=== PATIENT | female | born 1980 ===

== ENCOUNTER 2017-02-01 10:03 | Emergency (ER) | payer OTHER ==
[2017-02-01 10:04] VITALS: BMI 24.0
[2017-02-01 10:29] VITALS: O2SAT 100
[2017-02-01] MEDS ORDERED: Sodium Chloride 0.9% 1,000 ML IV ONE (12:56)
[2017-02-01 13:12] LABS: BASO % 0.5 % (0.0-2.0); EOS # 0.1 K/uL (0.0-0.7); EOS % 1.1 % (0.0-4.0); HEMATOCRIT 38.7 % (34.0-47.0); LYMPH # 2.6 K/uL (1.0-4.3); LYMPH % 32.8 % (20.0-40.0); MEAN CELL VOLUME 85.2 fL (81.0-99.0); MEAN CORPUSCULAR HGB CONC 32.8 g/dL (33.0-37.0); MONO # 0.5 K/uL (0.0-0.8); MONO % 6.9 % (0.0-10.0); RED CELL DISTRIBUTION WIDTH 13.7 % (11.5-14.5); WHITE BLOOD COUNT 7.8 K/uL (4.8-10.8)
[2017-02-01 13:18] LABS: RBC URINE 8 /hpf (0-3); URINE BILIRUBIN NEGATIVE (NEGATIVE); URINE BLOOD 2+ (NEGATIVE); URINE COLOR Yellow (YELLOW); URINE GLUCOSE (UA) NORMAL (Normal); URINE KETONE NEGATIVE (NEGATIVE); URINE LEUKOCYTE ESTERASE NEG Leu/uL (Negative); URINE PROTEIN NEGATIVE (NEGATIVE); URINE UROBILINOGEN NORMAL mg/dL (0.2-1.0); WBC URINE 1 /hpf (0-5)
[2017-02-01 13:19] LABS: CHLORIDE 101 mmol/L (98-107); POTASSIUM 3.8 mmol/L (3.6-5.2); SODIUM 143 mmol/L (132-148)
[2017-02-01 13:22] LABS: ALB/GLOB RATIO 1.2 (1.0-2.1); ALKALINE PHOSPHATASE 95 U/L (38-126); ALT/SGPT 17 U/L (9-52); AST/SGOT 19 U/L (14-36); BILIRUBIN,TOTAL 0.6 mg/dL (0.2-1.3); BLOOD UREA NITROGEN 10 mg/dL (7-17); CALCIUM 8.2 mg/dl (8.6-10.4); CARBON DIOXIDE 25 mmol/L (22-30); GFR AFRICAN-AMERICAN > 60; GLUCOSE,RANDOM 73 mg/dL (65-105); TOTAL PROTEIN 7.2 g/dL (6.3-8.3)
--- NOTE | 2017-02-01 14:20 | C.PDOC ---
History Of Present Illness Patient is a 36 year old female who presents to the ER with a complain of upper epigastric pain that is getting worse. Patient states she was seen in the ER in the beginning of December for the same reason. Patient was diagnosed with gastritis, given omeprazole, but did not follow up. Patient also complains of left lower back pain that has been present for a month after slipping and falling in the snow. Denies any chest pain, shortness of breath, nausea, vomiting, or any other injuries. Time Seen by Provider: 02/01/17 12:39 Chief Complaint (Nursing): Abdominal Pain History Per: Patient History/Exam Limitations: no limitations Onset/Duration Of Symptoms: Hrs (Upper epigastric pain), Days (Left lower back pain) Current Symptoms Are (Timing): Still Present Severity: Mild Location Of Pain/Discomfort: Epigastric (Upper) Associated Symptoms: denies: Fever, Chills, Nausea, Vomiting Past Medical History Reviewed: Historical Data, Nursing Documentation, Vital Signs Vital Signs: Last Vital Signs Temp 98.1 F 02/01/17 10:26 Pulse 71 02/01/17 10:26 Resp 16 02/01/17 10:26 BP 154/84 H 02/01/17 10:26 Pulse Ox 100 02/01/17 18:28 - Medical History PMH: Gall Bladder Disease (GB stones), Kidney Stones Surgical History: Cholecystectomy - [facility] Procedures INDIVID PSYCHOTHERAP NEC (09/13/13) INJECT/INFUSE NEC (10/14/13) LAPAROSCOPIC CHOLECYSTECTOMY (01/09/15) OTHER GROUP THERAPY (09/13/13) Family History: States: Unknown Family Hx - Social History Hx Tobacco Use: No Hx Alcohol Use: No Hx Substance Use: No - Immunization History Hx Tetanus Toxoid Vaccination: No Hx Influenza Vaccination: No Hx Pneumococcal Vaccination: No Review Of Systems Constitutional: Negative for: Fever, Chills Cardiovascular: Negative for: Chest Pain, Palpitations Respiratory: Negative for: Shortness of Breath Gastrointestinal: Positive for: Abdominal Pain (Upper epigastric pain). Negative for: Nausea, Vomiting Physical Exam - Physical Exam Appears: Well, Non-toxic Skin: Normal Color, Warm, Dry Head: Atraumatic, Normacephalic Eye(s): bilateral: Normal Inspection Oral Mucosa: Moist Chest: Symmetrical Cardiovascular: Rhythm Regular Respiratory: Normal Breath Sounds, No Rales, No Rhonchi, No Wheezing Gastrointestinal/Abdominal: Soft, Tenderness (Epigastric), No Distention, No Guarding, No Rebound, No Other (right upper quadrant pain) Back: No Vertebral Tenderness, Paraspinal Tenderness (Left lumbar) Extremity: Normal ROM, No Tenderness Neurological/Psych: Oriented x3, Normal Speech, Normal Cognition ED Course And Treatment - Laboratory Results Result Diagrams: 02/01/17 13:07 02/01/17 13:07 O2 Sat by Pulse Oximetry: 100 (Room air) Pulse Ox Interpretation: Normal - CT Scan/US CT ABD & Pelvis w/o contrast Other Rad Studies (CT/US): Read By Radiologist, Radiology Report Reviewed CT/US Interpretation: ADDENDUM: Addendum dictation: Please note that the impression of this report was erroneous. There is a 3 mm nonobstructing right lower pole renal calculus. There is no left renal calculus. Please make note of this addendum. [ Addendum Report Added by Ilan Martínez MD at 02/01/2017 18:03:05 ]. PROCEDURE: CT Abdomen and Pelvis without intravenous contrast. HISTORY: left flank pain and hematuria, eval for kidney sto. COMPARISON: None. TECHNIQUE: Without contrast.. Contrast Dose: 0. Radiation dose: Total exam DLP = 1126.27 mGy-cm. FINDINGS: LOWER THORAX: Unremarkable. LIVER : Unremarkable. No gross lesion or ductal dilatation. GALLBLADDER AND BILE DUCTS: Status post cholecystectomy. PANCREAS: Unremarkable. No gross lesion or ductal dilatation. SPLEEN: Unremarkable. ADRENALS: Unremarkable. No mass. KIDNEYS AND URETERS: 3 mm nonobstructing right lower pole renal calculus. No left renal calculus. No renal mass or hydronephrosis. VASCULATURE : Unremarkable. No aortic aneurysm. BOWEL: Unremarkable. No obstruction. No gross mural thickening. APPENDIX: Unremarkable. Normal appendix. PERITONEUM: Unremarkable. No free fluid. No free air. LYMPH NODES: Unremarkable. No enlarged lymph nodes. BLADDER: Unremarkable. REPRODUCTIVE: Normal uterus. BONES: No acute fracture. OTHER FINDINGS: None. IMPRESSION: 3 mm nonobstructing left lower pole renal calculus. No hydronephrosis. No ureteral calculus. Status post cholecystectomy. Otherwise unremarkable. Progress Note: Pepcid, and IV fluids administered. Urine culture, POC urine , and labs ordered. Medical Decision Making Medical Decision Making: pt's abdomen soft, nd, nt, no epigastric pain on palp after pepcid. pt still with left lumbar area pain and has some hematuria; will give toradol and get stone protocol ct abdomen to r/o stones. hydro. 624 pt feeling much better. left lower back pain markedly decreased after toradol. ct scan shows 3 mm stone in right kidney. will d/c with omeprazole and gi f/u/ Disposition Counseled Patient/Family Regarding: Studies Performed, Diagnosis, Need For Followup, Rx Given - Disposition Referrals: [facility] [Outside] Brian Montoya MD [Staff Provider] - Disposition: HOME/ ROUTINE Disposition Time: 18:29 Condition: IMPROVED Additional Instructions: Follow up with Dr Montoya (Gastroenterology doctor) and in medical clinic. Drink ,lots of water. Take Tylenol for back pain. Return to ER for any worsening symptoms. Prescriptions: Omeprazole 40 mg PO DAILY #21 capsule. Instructions: Gastritis (ED), Acute Low Back Pain (ED) Forms: Gen Discharge Inst Ethiopian - Clinical Impression Clinical Impression: Low back pain, Gastritis - Scribe Statement The provider has reviewed the documentation as recorded by the Scribe Sanford Becerra All medical record entries made by the Carolynnibsaulo were at my direction and personally dictated by me. I have reviewed the chart and agree that the record accurately reflects my personal performance of the history, physical exam, medical decision making, and the department course for this patient. I have also personally directed, reviewed, and agree with the discharge instructions and disposition.
--- NOTE | 2017-02-01 17:45 | CT ---
PROCEDURE: CT Abdomen and Pelvis without intravenous contrast HISTORY: left flank pain and hematuria, eval for kidney sto COMPARISON: None. TECHNIQUE: Without contrast.. Contrast Dose: 0 Radiation dose: Total exam DLP = 1126.27 mGy-cm. FINDINGS: LOWER THORAX: Unremarkable LIVER: Unremarkable. No gross lesion or ductal dilatation. GALLBLADDER AND BILE DUCTS: Status post cholecystectomy PANCREAS: Unremarkable. No gross lesion or ductal dilatation. SPLEEN: Unremarkable. ADRENALS: Unremarkable. No mass. KIDNEYS AND URETERS: 3 mm nonobstructing right lower pole renal calculus. No left renal calculus. No renal mass or hydronephrosis. VASCULATURE: Unremarkable. No aortic aneurysm. BOWEL: Unremarkable. No obstruction. No gross mural thickening. APPENDIX: Unremarkable. Normal appendix. PERITONEUM: Unremarkable. No free fluid. No free air. LYMPH NODES: Unremarkable. No enlarged lymph nodes. BLADDER: Unremarkable. REPRODUCTIVE: Normal uterus BONES: No acute fracture. OTHER FINDINGS: None. IMPRESSION: 3 mm nonobstructing left lower pole renal calculus. No hydronephrosis. No ureteral calculus. Status post cholecystectomy. Otherwise unremarkable.
[2017-02-01 18:46] VITALS: BP 143/90; PULSE 68; RESP 18; TEMP 98.2
== END 2017-02-01 18:46 | disposition home or self-care (01) ==
LOC: C.ER 10:03
DX: K29.70 Gastritis, unspecified, without bleeding (principal); M54.5 Low back pain
CPT/HCPCS: 74176; 80053; 81001; 83690; 85025; 87086; 96361; 96374; 96375; 99285; J1885; J7040

== ENCOUNTER 2017-02-08 08:10 | Day surgery (SDC) | payer OTHER ==
[2017-02-08 08:51] VITALS: BMI 34.7
[2017-02-08] MEDS ORDERED: Lactated Ringer's 500 ML IV ONE (10:10)
--- NOTE | 2017-02-08 10:11 | CP.SDSHP ---
Same Day Surgery H & P - History Proposed Procedure: egd Pre-Op Diagnosis: epigastric pain. heartburn - Previous Medical/Surgical History Endocrine/Metabolic: Obesity Previous Surgical History: Lap Cholecystectomy. L breast cyst. [place] - Allergies Allergies: Allergies morphine Allergy (Intermediate, Verified 02/08/17 08:50) RASH tramadol Allergy (Intermediate, Verified 02/08/17 08:50) RASH - Physical Exam Vital Signs: Vital Signs 02/08/17 09:01 Temperature 98.4 F Pulse Rate 67 Respiratory 19 Rate Blood Pressure 138/83 O2 Sat by Pulse 100 Oximetry Mental Status: Alert & Oriented x3 Neuro: WNL Heart: WNL Lungs: WNL GI: WNL - Impression Impression: epigastric pain. heartburn Pt. Evaluated Today:Candidate for Anesthesia & Procedure: Yes - Date & Time Date: 02/08/17 Time: 10:11 Short Stay Discharge - Short Stay Discharge Admitting Diagnosis/Reason for Visit: EPIGASTRIC PAIN / HEARTBURN /EPIGASTRIC ABDOMINAL Disposition: HOME/ ROUTINE
[2017-02-08] MEDS ORDERED: Pantoprazole 40 mg EC Tab PO ONE (10:12)
[2017-02-08] MEDS ORDERED: Lidocaine Hydrochloride 10 ML INJ ONE (10:15)
[2017-02-08] MEDS ORDERED: Propofol 10 mg/ml Inj (20 ML) ONE (10:15)
[2017-02-08] MEDS ORDERED: ePHEDrine 50 mg/ml Inj ONE (10:26)
[2017-02-08 10:48] VITALS: O2SAT 100
[2017-02-08 11:53] VITALS: BP 128/70; PULSE 60; RESP 15; TEMP 60
== END 2017-02-08 11:45 | disposition home or self-care (01) ==
LOC: C.ENDO 08:10
PROVIDERS: ATTEND Internal Medicine Gastroenterology
DX: R10.13 Epigastric pain (principal); K21.0 Gastro-esophageal reflux disease with esophagitis
CPT/HCPCS: 43239; 84703; 88305; 88312; 88342; J2704; J3010; J7120

== ENCOUNTER 2017-04-18 09:23 | Emergency (ER) | payer OTHER ==
[2017-04-18 09:34] VITALS: BMI 30.5
[2017-04-18] MEDS ORDERED: Sodium Chloride 0.9% 1,000 ML IV ONE (09:42)
[2017-04-18] MEDS ORDERED: Sodium Chloride 0.9% 1,000 ML ONE (10:16)
[2017-04-18 10:27] LABS: BASO # 0.1 K/uL (0.0-0.2); BASO % 0.6 % (0.0-2.0); EOS # 0.1 K/uL (0.0-0.7); HEMATOCRIT 36.9 % (34.0-47.0); LYMPH # 2.5 K/uL (1.0-4.3); LYMPH % 28.1 % (20.0-40.0); MEAN CELL VOLUME 84.6 fL (81.0-99.0); MEAN CORPUSCULAR HEMOGLOBIN 27.7 pg (27.0-31.0); MEAN CORPUSCULAR HGB CONC 32.7 g/dL (33.0-37.0); MEAN PLATELET VOLUME 8.4 fL (7.2-11.7); MONO # 0.6 K/uL (0.0-0.8); MONO % 7.2 % (0.0-10.0); RED CELL DISTRIBUTION WIDTH 14.3 % (11.5-14.5); WHITE BLOOD COUNT 8.9 K/uL (4.8-10.8)
[2017-04-18 10:36] LABS: URINE BILIRUBIN NEGATIVE (NEGATIVE); URINE BLOOD 2+ (NEGATIVE); URINE COLOR Straw (YELLOW); URINE GLUCOSE (UA) NORMAL (Normal); URINE KETONE NEGATIVE (NEGATIVE); URINE LEUKOCYTE ESTERASE NEG Leu/uL (Negative); URINE PROTEIN NEGATIVE (NEGATIVE); URINE UROBILINOGEN NORMAL mg/dL (0.2-1.0); WBC URINE < 1 /hpf (0-5)
[2017-04-18 10:48] LABS: CHLORIDE 107 mmol/L (98-107); POTASSIUM 3.7 mmol/L (3.6-5.2); SODIUM 139 mmol/L (132-148)
[2017-04-18 10:50] LABS: BILIRUBIN,TOTAL 0.5 mg/dL (0.2-1.3); GFR AFRICAN-AMERICAN > 60
[2017-04-18 10:51] LABS: ALB/GLOB RATIO 1.2 (1.0-2.1); ALKALINE PHOSPHATASE 105 U/L (38-126); ALT/SGPT 13 U/L (9-52); AST/SGOT 19 U/L (14-36); BLOOD UREA NITROGEN 13 mg/dL (7-17); CALCIUM 8.8 mg/dl (8.6-10.4); CARBON DIOXIDE 22 mmol/L (22-30); GLUCOSE,RANDOM 93 mg/dL (65-105); TOTAL PROTEIN 7.1 g/dL (6.3-8.3)
[2017-04-18 10:54] LABS: RBC URINE 5 /hpf (0-3)
--- NOTE | 2017-04-18 11:18 | C.PDOC ---
History Of Present Illness 36 y/o female presents to the ED with complaints of left flank pain for the past week with associated dysuria and mild nausea. Denies vomiting, fever, chest pain, SOB, vaginal bleeding or discharge or any other complaints. History of kidney stones in the past. Chief Complaint (Nursing): Back Pain History Per: Patient History/Exam Limitations: no limitations Onset/Duration Of Symptoms: Days Current Symptoms Are (Timing): Still Present Severity: Moderate Recent travel outside of the [place]: No Past Medical History Reviewed: Historical Data, Nursing Documentation, Vital Signs Vital Signs: Last Vital Signs Temp 98.2 F 04/18/17 13:55 Pulse 66 04/18/17 13:55 Resp 18 04/18/17 13:55 BP 108/68 04/18/17 13:55 Pulse Ox 100 04/18/17 13:55 - Medical History PMH: Gall Bladder Disease (GB stones), Kidney Stones Surgical History: Cholecystectomy - [facility] Procedures INDIVID PSYCHOTHERAP NEC (09/13/13) INJECT/INFUSE NEC (10/14/13) LAPAROSCOPIC CHOLECYSTECTOMY (01/09/15) OTHER GROUP THERAPY (09/13/13) Family History: States: Unknown Family Hx - Social History Hx Tobacco Use: No Hx Alcohol Use: No Hx Substance Use: No - Immunization History Hx Tetanus Toxoid Vaccination: No Hx Influenza Vaccination: No Hx Pneumococcal Vaccination: No Review Of Systems Except As Marked, All Systems Reviewed And Found Negative. Constitutional: Negative for: Fever, Chills Cardiovascular: Negative for: Chest Pain Respiratory: Negative for: Shortness of Breath Gastrointestinal: Positive for: Nausea. Negative for: Vomiting Genitourinary: Positive for: Dysuria. Negative for: Vaginal Discharge, Vaginal Bleeding Musculoskeletal: Positive for: Back Pain (left flank pain) Physical Exam - Physical Exam Appears: Non-toxic, No Acute Distress Skin: Warm, Dry, No Rash Head: Atraumatic, Normacephalic Chest: Symmetrical Cardiovascular: Rhythm Regular, No Murmur Respiratory: Normal Breath Sounds, No Rales, No Rhonchi, No Wheezing Gastrointestinal/Abdominal: Normal Exam, Soft, No Tenderness Back: CVA Tenderness (left) Extremity: Bilateral: Atraumatic Neurological/Psych: Oriented x3, Normal Speech ED Course And Treatment - Laboratory Results Result Diagrams: 04/18/17 10:15 04/18/17 10:15 ECG: Interpreted By Me, Viewed By Me ECG Rhythm: Sinus Rhythm Rate From EC (BPM) O2 Sat by Pulse Oximetry: 98 (room air) Pulse Ox Interpretation: Normal - CT Scan/US CT abd/pelvis Other Rad Studies (CT/US): Read By Radiologist, Radiology Report Reviewed CT/US Interpretation: PROCEDURE: CT Abdomen and Pelvis without Oral or IV contrast. HISTORY: left flank pain. COMPARISON: CT abdomen and pelvis without oral or IV contrast performed 02/01/17. TECHNIQUE: Contiguous axial images of the abdomen and pelvis. No oral or IV contrast administered. Coronal and Sagittal reformats generated and reviewed. Radiation dose: Total exam DLP = 849.19 mGy-cm. This CT exam was performed using one or more of the following dose reduction techniques: Automated exposure control, adjustment of the mA and/ or kV according to patient size, and/or use of iterative reconstruction technique. FINDINGS: There is limited evaluation of the solid organs without the administration of IV contrast. LOWER THORAX: No visible consolidation, pleural effusion, or pneumothorax. LIVER: Unremarkable unenhanced appearance. GALLBLADDER AND BILE DUCTS: Cholecystectomy. PANCREAS: Unremarkable unenhanced appearance. SPLEEN: 11 mm probable splenule. Unremarkable unenhanced appearance. ADRENALS: Unremarkable unenhanced appearance. KIDNEYS AND URETERS: No hydronephrosis or obstructing renal calculus. Single bilateral nonobstructing calculi measuring less than 3 mm. BLADDER: The urinary bladder appears unremarkable. REPRODUCTIVE: Uterus is present. Bilateral probable ovarian cysts. APPENDIX: The appendix appears within normal limits of caliber. No secondary signs of acute appendicitis. BOWEL: The stomach is nondistended. Lack of oral contrast limits evaluation for bowel pathology. The bowel loops appear within normal limits of caliber without evidence of intestinal obstruction. PERITONEUM: No significant free fluid. No definite free air. LYMPH NODES: Sub cm nonspecific mesenteric lymph nodes. No bulky lymphadenopathy identified. VASCULATURE: No aortic aneurysm. BONES: No acute osseous abnormality is detected. OTHER FINDINGS: Tiny fat containing umbilical hernia. IMPRESSION: No hydronephrosis or obstructing renal calculus. Single bilateral nonobstructing calculi measuring less than 3 mm. Bilateral probable ovarian cysts. Medical Decision Making Medical Decision Making: Plan: * Ct abdomen * EKG * labs * UA * IV fluids * toradol Disposition - Disposition Referrals: [facility] Yakelin Rao, [Non-Staff] - Disposition: HOME/ ROUTINE Disposition Time: 12:30 Condition: IMPROVED Additional Instructions: Thank you for letting us take care of you today. Your provider was Dr. Neff. You were treated for kidney stones. The emergency medical care you received today was directed at your acute symptoms. If you were prescribed any medication, please fill it and take as directed. It may take several days for your symptoms to resolve. Return to the Emergency Department if your symptoms worsen, do not improve, or if you have any other problems. Please contact your doctor or call one of the physicians/clinics you have been referred to that are listed on the Patient Visit Information form that is included in your discharge packet. Bring any paperwork you were given at discharge with you along with any medications you are taking to your follow up visit. Our treatment cannot replace ongoing medical care by a primary care provider (PCP) outside of the emergency department. [facility] you [facility] to be part of your care today. Follow up with your doctor in 2-3 days for re-evaluation. Prescriptions: Benzonatate [Tessalon Perles] 100 mg PO Q8 PRN #15 sgl PRN Reason: Cough Ibuprofen [Motrin] 600 mg PO Q6 PRN #20 tab PRN Reason: Pain, Moderate (4-7) Instructions: Kidney Stones (ED), How to Strain Your Urine (ED) Forms: Gen Discharge Inst Chinese Print Language: LITHUANIAN - Clinical Impression Clinical Impression: Kidney stone - Scribe Statement The provider has reviewed the documentation as recorded by the George Quintana Provider Attestation: All medical record entries made by the George were at my direction and personally dictated by me. I have reviewed the chart and agree that the record accurately reflects my personal performance of the history, physical exam, medical decision making, and the department course for this patient. I have also personally directed, reviewed, and agree with the discharge instructions and disposition.
[2017-04-18 12:10] VITALS: BP 108/68
--- NOTE | 2017-04-18 12:14 | CT ---
PROCEDURE: CT Abdomen and Pelvis without Oral or IV contrast. HISTORY: left flank pain COMPARISON: CT abdomen and pelvis without oral or IV contrast performed 02/01/17 TECHNIQUE: Contiguous axial images of the abdomen and pelvis. No oral or IV contrast administered. Coronal and Sagittal reformats generated and reviewed. Radiation dose: Total exam DLP = 849.19 mGy-cm. This CT exam was performed using one or more of the following dose reduction techniques: Automated exposure control, adjustment of the mA and/or kV according to patient size, and/or use of iterative reconstruction technique. FINDINGS: There is limited evaluation of the solid organs without the administration of IV contrast. LOWER THORAX: No visible consolidation, pleural effusion, or pneumothorax. LIVER: Unremarkable unenhanced appearance. GALLBLADDER AND BILE DUCTS: Cholecystectomy. PANCREAS: Unremarkable unenhanced appearance. SPLEEN: 11 mm probable splenule. Unremarkable unenhanced appearance. ADRENALS: Unremarkable unenhanced appearance. KIDNEYS AND URETERS: No hydronephrosis or obstructing renal calculus. Single bilateral nonobstructing calculi measuring less than 3 mm. BLADDER: The urinary bladder appears unremarkable. REPRODUCTIVE: Uterus is present. Bilateral probable ovarian cysts. APPENDIX: The appendix appears within normal limits of caliber. No secondary signs of acute appendicitis. BOWEL: The stomach is nondistended. Lack of oral contrast limits evaluation for bowel pathology. The bowel loops appear within normal limits of caliber without evidence of intestinal obstruction. PERITONEUM: No significant free fluid. No definite free air. LYMPH NODES: Sub cm nonspecific mesenteric lymph nodes. No bulky lymphadenopathy identified. VASCULATURE: No aortic aneurysm. BONES: No acute osseous abnormality is detected. OTHER FINDINGS: Tiny fat containing umbilical hernia. IMPRESSION: No hydronephrosis or obstructing renal calculus. Single bilateral nonobstructing calculi measuring less than 3 mm. Bilateral probable ovarian cysts.
[2017-04-18 13:56] VITALS: PULSE 66; RESP 18; TEMP 98.2
--- NOTE | 2017-04-19 14:03 | CARD ---
APPROVED REPORT EKG Measurement Heart [id number] <Conclusion> Normal sinus rhythm Normal ECG
[2017-04-21 07:21] VITALS: O2SAT 98
== END 2017-04-18 13:57 | disposition home or self-care (01) ==
LOC: C.ER 09:23
DX: N20.0 Calculus of kidney (principal); Z87.442 Personal history of urinary calculi
CPT/HCPCS: 74176; 80053; 81001; 83690; 85025; 87086; 93005; 96361; 96374; 99285; J1885; J7040

== ENCOUNTER 2017-09-02 17:27 | Emergency (ER) | payer OTHER ==
[2017-09-02 17:27] VITALS: BMI 35.5
[2017-09-02 17:33] VITALS: RESP 16; TEMP 97.4; O2SAT 98
--- NOTE | 2017-09-02 18:33 | C.PDOC ---
History Of Present Illness 37 y/o female c/o bilateral lateral ankle pain since 10 am after tripping down one step in [employer] where she works, twisting both ankles in the process at 10 am. pt denies hitting her head, no other injuries, ambulates with pain, no analgesics tried. Time Seen by Provider: 09/02/17 18:26 Chief Complaint (Nursing): Lower Extremity Problem/Injury History Per: Patient History/Exam Limitations: no limitations Past Medical History Reviewed: Historical Data, Nursing Documentation, Vital Signs Vital Signs: Last Vital Signs Temp 97.4 F L 09/02/17 17:31 Pulse 74 09/02/17 20:31 Resp 16 09/02/17 20:31 BP 132/78 09/02/17 20:31 Pulse Ox 98 09/06/17 20:46 - Medical History PMH: Gall Bladder Disease (GB stones), Kidney Stones Denies: Colonic Polyps, Fractures Surgical History: Cholecystectomy - [facility] Procedures INDIVID PSYCHOTHERAP NEC (09/13/13) INJECT/INFUSE NEC (10/14/13) LAPAROSCOPIC CHOLECYSTECTOMY (01/09/15) OTHER GROUP THERAPY (09/13/13) Family History: States: Unknown Family Hx - Social History Hx Tobacco Use: No Hx Alcohol Use: No Hx Substance Use: No - Immunization History Hx Tetanus Toxoid Vaccination: No Hx Influenza Vaccination: No Hx Pneumococcal Vaccination: No Review Of Systems Musculoskeletal: Positive for: Foot Pain (bilateral ankle pain and swelling) Skin: Negative for: Bruising Neurological: Negative for: Weakness, Numbness Physical Exam - Physical Exam Appears: Non-toxic, No Acute Distress Skin: Normal Color, Warm, Dry Head: Atraumatic, Normacephalic Eye(s): bilateral: Normal Inspection, PERRL, EOMI Nose: Normal Neck: No Midline Cervical Tenderness Cardiovascular: Rhythm Regular, No Murmur Respiratory: Normal Breath Sounds, No Accessory Muscle Use, No Wheezing Gastrointestinal/Abdominal: Soft, No Tenderness Extremity: Tenderness (to the lateral malleolus bilaterally), No Calf Tenderness , Capillary Refill (< 2 sec), Swelling (bilateral lateral malleolar regions), Other (from at knees) Pulses: Left Dorsalis Pedis: Normal, Right Dorsalis Pedis: Normal Neurological/Psych: Oriented x3, Normal Speech, Normal Cognition, Normal Motor, Normal Sensation ED Course And Treatment O2 Sat by Pulse Oximetry: 98 (RA) Pulse Ox Interpretation: Normal Progress Note: Ordered urine and X-Ray of Bilateral Ankles. Patient given Tylenol in the ED. Cold pack applied to ankles. Medical Decision Making Medical Decision Making: no fxs noted on either ankle xray, pt given vonda bandages to use at night and air casts for daytime, able to walk with some discomfort. pt advised to elevate legs at night, cold compresses vonda bandage, tylenol for pain (pt has gastritis and doesn't take motrin) f/u ortho. explained to paitient via tranalator Maray H. Disposition Counseled Patient/Family Regarding: Diagnosis, Need For Followup, Rx Given - Disposition Referrals: [facility] [Outside] [facility] [Outside] Bacilio White III, MD [Staff Provider] - Disposition: HOME/ ROUTINE Disposition Time: 20:23 Condition: STABLE Additional Instructions: Use yesos jacob el da y use vendajes de noche. Mantenga los pies elevados cuando sea posible, aplique compresas fras en los tobillos para disminuir la hinchazn. Tylneol para el dolor Seguimiento en clnica mdica o con ortopedista. Trata de disminuir la posicin y caminar en los prximos vasquez para descansar. RICE_ cherie, hielo, compresin, elevacin. Wear air casts in daytime, and use vonda bandages at night. Keep feet elevated when possible, apply cold compress to ankles to decrease swelling. Tylneol for pain. Follow up in medical clinic or with orthopedist. Try to decrease standing and walkijng in next few days to rest. RICE_ rest, ice, compression, elevation. 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 - Scribe Statement The provider has reviewed the documentation as recorded by the Carolynnibsaulo Bradley All medical record entries made by the Scribe were at my direction and personally dictated by me. I have reviewed the chart and agree that the record accurately reflects my personal performance of the history, physical exam, medical decision making, and the department course for this patient. I have also personally directed, reviewed, and agree with the discharge instructions and disposition.
[2017-09-02 20:32] VITALS: BP 132/78; PULSE 74
--- NOTE | 2017-09-03 07:56 | RAD ---
Bilateral ankles four views History: Injury. Comparison: None available. Findings: Right ankle: Ankle inversion which may be related to patient positioning. Clinical correlation. Lateral malleolar soft tissue swelling. Mild prominence of the lateral aspect of the tibiotalar joint space which may be related to patient positioning. Clinical correlation. No evidence of acute displaced fracture or dislocation. Left ankle: Ankle inversion which may be related to patient positioning. Clinical correlation. Lateral malleolar soft tissue swelling. No evidence for acute displaced fracture or dislocation. Impression: Right ankle: Ankle inversion which may be related to patient positioning. Clinical correlation. Lateral malleolar soft tissue swelling. Mild prominence of the lateral aspect of the tibiotalar joint space which may be related to patient positioning. Clinical correlation. No evidence of acute displaced fracture or dislocation. Left ankle: Ankle inversion which may be related to patient positioning. Clinical correlation. Lateral malleolar soft tissue swelling. No evidence for acute displaced fracture or dislocation. If pain persists, consider MRI.
== END 2017-09-02 20:30 | disposition home or self-care (01) ==
LOC: C.ER 17:27
DX: S93.402A Sprain of unspecified ligament of left ankle, initial encounter (principal); S93.401A Sprain of unspecified ligament of right ankle, initial encounter; W10.9XXA Fall (on) (from) unspecified stairs and steps, initial encounter; Y92.22 Religious institution as the place of occurrence of the external cause; Y99.0 Civilian activity done for income or pay

== ENCOUNTER 2018-01-18 15:53 | Emergency (ER) | payer SELFPAY ==
[2018-01-18 15:53] VITALS: BMI 36.1
[2018-01-18 16:00] VITALS: RESP 18; TEMP 97.9; O2SAT 100
[2018-01-18] MEDS ORDERED: Sodium Chloride 0.9% 1,000 ML IV ONE (16:20)
[2018-01-18] MEDS ORDERED: Sodium Chloride 0.9% 1,000 ML ONE (16:30)
[2018-01-18 16:37] LABS: BASO % 0.5 % (0.0-2.0); EOS # 0.1 K/uL (0.0-0.7); HEMOGLOBIN 11.3 g/dL (11.0-16.0); LYMPH # 2.4 K/uL (1.0-4.3); LYMPH % 28.3 % (20.0-40.0); MEAN CELL VOLUME 80.9 fL (81.0-99.0); MEAN CORPUSCULAR HEMOGLOBIN 26.4 pg (27.0-31.0); MEAN CORPUSCULAR HGB CONC 32.6 g/dL (33.0-37.0); MEAN PLATELET VOLUME 7.5 fL (7.2-11.7); MONO # 0.5 K/uL (0.0-0.8); MONO % 6.2 % (0.0-10.0); NEUT # 5.3 K/uL (1.8-7.0); RBC 4.3 Mil/uL (3.80-5.20); RED CELL DISTRIBUTION WIDTH 14.5 % (11.5-14.5); WHITE BLOOD COUNT 8.3 K/uL (4.8-10.8)
--- NOTE | 2018-01-18 16:40 | C.PDOC ---
History Of Present Illness 37 y/o female presents to ED with complaints of colic left sided abdominal discomfort and foul urine smell for 6 days. Patient thinks she has kidney issues and came to ED for further evaluation. Patient denies fever, chills, nausea, vomiting, diarrhea, hematuria or any other complaints at this time. + mentrual period today. Time Seen by Provider: 01/18/18 16:12 Chief Complaint (Nursing): Back Pain History Per: Patient History/Exam Limitations: no limitations Onset/Duration Of Symptoms: Days Current Symptoms Are (Timing): Still Present Past Medical History Reviewed: Historical Data, Nursing Documentation, Vital Signs Vital Signs: Last Vital Signs Temp 97.9 F 01/18/18 15:56 Pulse 76 01/18/18 15:56 Resp 18 01/18/18 15:56 BP 128/66 01/18/18 15:56 Pulse Ox 100 01/18/18 16:46 - Medical History PMH: Gastritis, Gall Bladder Disease (GB stones), Kidney Stones Surgical History: Cholecystectomy - [facility] Procedures INDIVID PSYCHOTHERAP NEC (09/13/13) INJECT/INFUSE NEC (10/14/13) LAPAROSCOPIC CHOLECYSTECTOMY (01/09/15) OTHER GROUP THERAPY (09/13/13) Family History: States: No Known Family Hx - Social History Hx Tobacco Use: No Hx Alcohol Use: No Hx Substance Use: No - Immunization History Hx Tetanus Toxoid Vaccination: No Hx Influenza Vaccination: No Hx Pneumococcal Vaccination: No Review Of Systems Constitutional: Negative for: Fever, Chills Gastrointestinal: Positive for: Abdominal Pain. Negative for: Nausea, Vomiting Genitourinary: Negative for: Hematuria Skin: Negative for: Rash Physical Exam - Physical Exam Appears: No Acute Distress, Other (Obese) Skin: Warm, Dry, No Rash Head: Atraumatic, Normacephalic Oral Mucosa: Moist Neck: Normal ROM, Supple Cardiovascular: Rhythm Regular Respiratory: Normal Breath Sounds, No Rales, No Rhonchi, No Wheezing Gastrointestinal/Abdominal: Soft, No Tenderness, No Guarding, No Rebound, Other (Dull to percussion. Negative franks's sign ) Back: No CVA Tenderness Extremity: Normal ROM, Capillary Refill (<2 seconds) Neurological/Psych: Oriented x3, Normal Speech ED Course And Treatment - Laboratory Results Result Diagrams: 01/18/18 16:33 01/18/18 16:33 Lab Interpretation: Normal (+ blood in urine c/w MP) Urine POC: Negative O2 Sat by Pulse Oximetry: 100 (RA) Pulse Ox Interpretation: Normal - Radiology CXR: Interpreted by Me CXR Interpretation: Yes: No Acute Disease - Other Rad abd x 2 X-Ray: Interpreted by Me (+FOS) Progress Note: NS, toradol IV Reevaluation Time: 17:46 Reassessment Condition: Improved (asleep, calm) Medical Decision Making Medical Decision Making: Prior records reviewed: Patient has extensive visits to ED since 2012 for vague complaints. History of psychiatric depression and anxiety. constipation LOW susp of renal colic blood in urine c/w MP Disposition Doctor Will See Patient In The: Office Counseled Patient/Family Regarding: Studies Performed, Diagnosis - Disposition Disposition: HOME/ ROUTINE Disposition Time: 17:47 Condition: GOOD Forms: [facility] (Korean) - Clinical Impression Clinical Impression: Colicky periumbilical abdominal pain - Scribe Statement The provider has reviewed the documentation as recorded by the Scribsaulo Kaur All medical record entries made by the Carolynnibsaulo were at my direction and personally dictated by me. I have reviewed the chart and agree that the record accurately reflects my personal performance of the history, physical exam, medical decision making, and the department course for this patient. I have also personally directed, reviewed, and agree with the discharge instructions and disposition.
[2018-01-18 16:45] LABS: HCG,QUALITATIVE URINE NEGATIVE (NEGATIVE); SQUAMOUS EPITHIAL 3 /hpf (0-5); URINE BACTERIA OCC (<OCC); URINE BILIRUBIN NEGATIVE (NEGATIVE); URINE BLOOD 3+ (NEGATIVE); URINE CLARITY Clear (Clear); URINE COLOR Yellow (YELLOW); URINE GLUCOSE (UA) NORMAL (Normal); URINE LEUKOCYTE ESTERASE NEG Leu/uL (Negative); URINE PROTEIN NEGATIVE (NEGATIVE); URINE UROBILINOGEN NORMAL mg/dL (0.2-1.0)
[2018-01-18 16:57] LABS: ALBUMIN 3.8 g/dL (3.5-5.0); ALT/SGPT 23 U/L (9-52); AST/SGOT 24 U/L (14-36); BLOOD UREA NITROGEN 10 mg/dL (7-17); CALCIUM 8.7 mg/dl (8.6-10.4); GFR AFRICAN-AMERICAN > 60; GFR NON-AFRICAN AMERICAN > 60; LIPASE 67 U/L (23-300)
--- NOTE | 2018-01-18 17:50 | RAD ---
PROCEDURE: Radiographs of the chest and abdomen (obstructive series) HISTORY: abd pain COMPARISON: CT abdomen and pelvis without contrast performed 04/18/17 TECHNIQUE: AP radiograph of the chest, with upright and supine radiographs of the abdomen. FINDINGS: CHEST: Heart size appears within normal limits. No focal consolidation. No pleural effusion. No pneumothorax. Please note that chest x-ray has limited sensitivity for the detection of pulmonary masses. ABDOMEN AND PELVIS: Cholecystectomy clips. Nonobstructive bowel gas pattern. Mild constipation. No definite free air. No acute osseous abnormality is detected. IMPRESSION: Cholecystectomy clips. Mild constipation.
[2018-01-18 18:03] VITALS: BP 118/76; PULSE 65
== END 2018-01-18 18:04 | disposition home or self-care (01) ==
LOC: C.ER 15:53
DX: R10.84 Generalized abdominal pain (principal)
CPT/HCPCS: 74022; 80053; 81001; 83690; 84703; 85025; 96361; 96374; 99285; J1885; J7040

== ENCOUNTER 2018-12-21 11:16 | Outpatient (CLI) | payer OTHER, SELFPAY | END 2018-12-21 11:17 | disposition home or self-care (01) | LOC: C.MAMMO 11:16 | DX: N64.4 Mastodynia (principal) ==

== ENCOUNTER 2019-01-16 07:14 | Day surgery (SDC) | payer OTHER ==
[2019-01-15 13:43] VITALS: BMI 35.5
[2019-01-16 08:23] VITALS: O2SAT 100
[2019-01-16] MEDS ORDERED: Propofol 10 mg/ml Inj (20 ML) ONE (08:47)
--- NOTE | 2019-01-16 08:47 | CP.SDSHP ---
Same Day Surgery H & P - History Proposed Procedure: EGD Pre-Op Diagnosis: epigastric pain. heartburn - Previous Medical/Surgical History Previous Surgical History: Lap Cholecystectomy. Breast Cyst. [place] - Allergies Allergies: Allergies morphine Allergy (Intermediate, Verified 01/16/19 07:54) VOMITING "MY LEGS FEEL COLD" tramadol Allergy (Intermediate, Verified 01/16/19 07:54) RASH - Physical Exam Vital Signs: Vital Signs 01/16/19 08:13 Temperature 98.6 F Pulse Rate 72 Respiratory 16 Rate Blood Pressure 136/76 O2 Sat by Pulse 100 Oximetry Mental Status: Alert & Oriented x3 Neuro: WNL Heart: WNL Lungs: WNL GI: WNL - Impression Impression: epigastric pain. heartburn refractory to PPI Pt. Evaluated Today:Candidate for Anesthesia & Procedure: Yes - Date & Time Date: 01/16/19 Time: 08:47 Short Stay Discharge - Short Stay Discharge Admitting Diagnosis/Reason for Visit: EPIGASTRIC PAIN Disposition: HOME/ ROUTINE
[2019-01-16] MEDS ORDERED: Pantoprazole 40 mg EC Tab PO STA (08:49)
[2019-01-16] MEDS ORDERED: Lidocaine Hydrochloride 5 ML INJ ONE (09:10)
[2019-01-16 09:27] VITALS: TEMP 99.3
[2019-01-16 10:02] VITALS: BP 124/70; PULSE 69; RESP 17
== END 2019-01-16 10:20 | disposition home or self-care (01) ==
LOC: C.ENDO 07:14
PROVIDERS: ATTEND Internal Medicine Gastroenterology
DX: K21.0 Gastro-esophageal reflux disease with esophagitis (principal); K29.70 Gastritis, unspecified, without bleeding
CPT/HCPCS: 43239; 84703; 88305; 88312; 88313; 88342; J2704

== ENCOUNTER 2019-01-25 09:32 | Outpatient (CLI) | payer OTHER | END 2019-01-25 09:33 | disposition home or self-care (01) | LOC: C.LAB 09:32 | DX: N92.6 Irregular menstruation, unspecified (principal) ==

== ENCOUNTER 2019-03-15 14:55 | Emergency (ER) | payer OTHER ==
[2019-03-15 14:55] VITALS: BMI 35.5
[2019-03-15 15:06] VITALS: BP 134/82; PULSE 82; RESP 18; TEMP 99; O2SAT 100
--- NOTE | 2019-03-15 15:39 | C.PDOC ---
History Of Present Illness 38 year old female presents to ED with complaint of sore throat for the past 2 weeks. Patient has a PMHx of esophagitis and gastritis s/p endoscopy 01/2019. Patient is complaint with her GI medications. Patient also complains of subjective fever. She denies cough, runny nose, or nasal congestion. SORE THROAT X 2 WEEKS. HO ESOPHAGITIS, GASTRITIS S/P ENDO 01/2019. COMPLIANT W GI MEDS. SUBJ FEVER. NO OTHER ASSOC SX EXAM NONTOXIC HEENT MIN THROAT ERYTHEMA NO SWELL EXUDATE; NO STRIDOR, DROOL; NO CERV NODES REMAINDER NEG MDM SORE THROAT, NO EXUDATE. POSSIBLE REFLUX? Time Seen by Provider: 03/15/19 15:21 Chief Complaint (Nursing): ENT Problem History Per: Patient History/Exam Limitations: no limitations Onset/Duration Of Symptoms: Other (2 weeks) Current Symptoms Are (Timing): Still Present Location Of Pain: Throat Associated Symptoms: Fever, Sore Throat. denies: Chills, Cough, Sinus Drainage, Nasal Congestion Past Medical History Reviewed: Historical Data, Nursing Documentation, Vital Signs Vital Signs: Last Vital Signs Temp 99.0 F 03/15/19 15:01 Pulse 82 03/15/19 15:01 Resp 18 03/15/19 15:01 BP 134/82 03/15/19 15:01 Pulse Ox 100 03/15/19 15:01 Primary Care Provider: FAMILY PROVIDER,NO - Medical History PMH: Gastritis, Gall Bladder Disease (GB stones), Kidney Stones Denies: Colonic Polyps, Fractures, Chronic Kidney Disease Surgical History: Cholecystectomy, Endoscopy - [facility] Procedures INDIVID PSYCHOTHERAP NEC (09/13/13) INJECT/INFUSE NEC (10/14/13) LAPAROSCOPIC CHOLECYSTECTOMY (01/09/15) OTHER GROUP THERAPY (09/13/13) Family History: States: Unknown Family Hx - Social History Hx Tobacco Use: No Hx Alcohol Use: No Hx Substance Use: No - Immunization History Hx Tetanus Toxoid Vaccination: No Hx Influenza Vaccination: No Hx Pneumococcal Vaccination: No Review Of Systems Except As Marked, All Systems Reviewed And Found Negative. Constitutional: Positive for: Fever ENT: Positive for: Throat Pain Physical Exam - Physical Exam Appears: Well, Non-toxic, No Acute Distress Skin: Normal Color, Warm, Dry Head: Atraumatic, Normacephalic Eye(s): bilateral: Normal Inspection, PERRL, EOMI Ear(s): Bilateral: Normal Nose: Normal, No Discharge Oral Mucosa: Moist Throat: Erythema (minimal erythema), No Exudate, No Drooling, No Other (swelling, stridor) Neck: Normal ROM, Supple Lymphatic: No Other (cervical nodes) Chest: Symmetrical, No Deformity Cardiovascular: Rhythm Regular, No Murmur Respiratory: No Accessory Muscle Use, No Rales, No Rhonchi, No Wheezing, Other (NARD) Gastrointestinal/Abdominal: Soft, No Tenderness Extremity: Capillary Refill (<2 seconds) Extremity: Bilateral: Atraumatic, Normal Color And Temperature, Normal ROM Pulses: Left Radial: Normal, Right Radial: Normal Neurological/Psych: Oriented x3, Normal Speech, Normal Cognition ED Course And Treatment O2 Sat by Pulse Oximetry: 100 (in RA) Pulse Ox Interpretation: Normal Progress Note: Patient given Lidocaine 2% viscous PO. Medical Decision Making Medical Decision Making: Sore throat with no exudate. Possible acid reflux. Disposition Counseled Patient/Family Regarding: Diagnosis, Need For Followup - Disposition Referrals: [facility] [Outside] [facility] [Outside] Disposition: HOME/ ROUTINE Disposition Time: 15:39 Condition: IMPROVED Additional Instructions: Bicarbonato de sodio: ariel cucharadita de bicarbonato de sodio (ariel sustancia base) neutraliza el cido estomacal para que, incluso si sale, no sientas boubacar sensacin de ardor. Mezcle 1 cucharadita de bicarbonato de sodio con 8 onzas de agua y bbalo todo. Instructions: Acid Reflux (Gastroesophageal Reflux Disease), Adult (DC) Forms: [employer] (Tajik) Print Language: MACEDONIAN - Clinical Impression Clinical Impression: Throat pain - Scribe Statement The provider has reviewed the documentation as recorded by the Scribe (Erendira Hinojosa) All medical record entries made by the Scribe were at my direction and personally dictated by me. I have reviewed the chart and agree that the record accurately reflects my personal performance of the history, physical exam, medical decision making, and the department course for this patient. I have also personally directed, reviewed, and agree with the discharge instructions and disposition.
== END 2019-03-15 16:02 | disposition home or self-care (01) ==
LOC: C.ER 14:55
DX: R07.0 Pain in throat (principal)